=== PATIENT | female | born 1990 | race Caucasian/White ===

== ENCOUNTER 2021-10-28 05:55 | Emergency (ER) | payer MEDICAID, OTHER ==
[2021-10-28] MEDS ORDERED: Ketorolac 30 MG/ML SDV IM ONE (06:31)
[2021-10-28 07:11] LABS: BARBITURATE SCREEN,URINE NEGATIVE (NEGATIVE); BENZODIAZEPINES SCREEN,URINE POSITIVE (NEGATIVE); METHAMPHETAMINE SCREEN, URINE NEGATIVE (NEGATIVE); THC SCREEN,URINE 50 NG/ML NEGATIVE (NEGATIVE)
[2021-10-28 07:12] LABS: BUPRENORPHINE SCREEN,URINE NEGATIVE (NEGATIVE)
[2021-10-28 07:35] LABS: ANION GAP 16.7 mmol/L (5-15); CHLORIDE,CL 106 mmol/L (98-107); SODIUM,NA 145 mmol/L (136-145)
== END 2021-10-28 08:00 | disposition home or self-care (01) ==
LOC: VM.ED 05:55
DX: R07.89 Other chest pain (principal); R07.2 Precordial pain; Z72.0 Tobacco use
CPT/HCPCS: 36415; 71046; 80053; 80305-QW; 80307; 81003; 84484; 85025; 86140; 93005; 93010; 96372; 99284; 99285-25; J1885